=== PATIENT | male | born 1970 | race Caucasian/White ===

== ENCOUNTER 2017-07-01 16:35 | Emergency (ER) | payer BC ==
[2017-07-01 16:51] VITALS: BP 126/76
[2017-07-01] MEDS ORDERED: FAMOTIDINE 20 MG TABLET PO ONE (17:48)
[2017-07-01] MEDS ORDERED: PREDNISONE 20 MG TABLET PO ONE (17:48)
--- NOTE | 2017-07-01 17:57 | ER Document Report ---
ED Extremity Problem, Lower - General Chief Complaint: Swelling of Lower Extremity Stated Complaint: LEFT FOOT PAIN Time Seen by Provider: 07/01/17 17:30 Mode of Arrival: Ambulatory Information source: Patient Notes: 46-year-old male presents to ED for swelling to the left foot since Sunday. He states he has been itching and scratching the foot since Sunday he noticed that it started swelling 3-4 days ago. He states his been putting anti-itch cream on it and it is not getting any better he states he does scratch it frequently. He denies any injury there is no redness or warmth to the foot he walks with a steady even gait. He states he has not injured his foot. He states he does not remember anything biting his foot and he does not walk around barefooted. He states he does scratch it frequently and the fortune that I see or from him scratching so much. TRAVEL OUTSIDE OF THE [place] IN LAST 30 DAYS: No - HPI Patient complains to provider of: Swelling - Itching and pressure to foot Location: Foot Occurred: Other - Last Sunday Onset/Duration: Gradual, Persistent Quality of pain: Pressure - Itching Severity: Mild Pain Level: 1 Recent injury: No Associated symptoms: Other - Pressure when walking and itchy Exacerbated by: Walking Relieved by: Nothing Past Medical History - General Information source: Patient - Social History Smoking Status: Never Smoker Cigarette use (# per day): No Chew tobacco use (# tins/day): No Smoking Education Provided: No Frequency of alcohol use: Occasional Drug Abuse: None Occupation: [employer] at [employer] Lives with: Parents - States mom moved in with him for him to help care for her Family History: COPD, DM, Hypertension Patient has suicidal ideation: No Patient has homicidal ideation: No - Past Medical History Cardiac Medical History: Reports: None Pulmonary Medical History: Reports: None EENT Medical History: Reports: None Neurological Medical History: Reports: None Endocrine Medical History: Reports: None Renal/ Medical History: Reports: None Malignancy Medical History: Reports None GI Medical History: Reports: None Musculoskeltal Medical History: Reports Hx Musculoskeletal Trauma - Fifth finger Skin Medical History: Reports None Psychiatric Medical History: Reports: None Traumatic Medical History: Reports: Hx Fractures - Fifth finger Infectious Medical History: Reports: None Past Surgical History: Reports: Hx Appendectomy, Hx Inguinal Hernia - Left - Immunizations Immunizations up to date: Yes Review of Systems - Review of Systems Constitutional: No symptoms reported EENT: No symptoms reported Cardiovascular: No symptoms reported Respiratory: No symptoms reported Gastrointestinal: No symptoms reported Genitourinary: No symptoms reported Male Genitourinary: No symptoms reported Musculoskeletal: No symptoms reported Skin: Rash - Rash and swelling to left foot denies injury no redness no warmth present Hematologic/Lymphatic: No symptoms reported Neurological/Psychological: No symptoms reported -: Yes All other systems reviewed and negative Physical Exam - Vital signs Vitals: Temp Pulse Resp BP Pulse Ox 98.3 F 80 16 126/76 H 96 07/01/17 16:45 07/01/17 16:45 07/01/17 16:45 07/01/17 16:45 07/01/17 16:45 Interpretation: Normal - General General appearance: Appears well, Alert - HEENT Head: Normocephalic, Atraumatic Eyes: Normal Pupils: PERRL - Respiratory Respiratory status: No respiratory distress Chest status: Nontender Breath sounds: Normal Chest palpation: Normal - Cardiovascular Rhythm: Regular Heart sounds: Normal auscultation Murmur: No - Abdominal Inspection: Normal Distension: No distension Bowel sounds: Normal Tenderness: Nontender Organomegaly: No organomegaly - Back Back: Normal, Nontender - Extremities General upper extremity: Normal inspection, Nontender, Normal color, Normal ROM , Normal temperature General lower extremity: Normal color, Normal ROM, Normal temperature, Normal weight bearing. No: Stewart's sign Foot: No evidence of FB, Other - Swelling and rash to the top of the left foot since Sunday does not remember any injury does not remember anything biting him no redness no warmth states it feels like there is a little pressure due to swelling but no other pain. No: Tender, Abrasion, Deformity, Ecchymosis, Instability, Laceration, Metatarsal compress. pain, Nail injury, Navicular tenderness, Puncture wound, Tender 5th metatarsal - Neurological Neuro grossly intact: Yes Cognition: Normal Orientation: AAOx4 Rolla Coma Scale Eye Opening: Spontaneous Eitan Coma Scale Verbal: Oriented Eitan Coma Scale Motor: Obeys Commands Rolla Coma Scale Total: 15 Speech: Normal Motor strength normal: LUE, RUE, LLE, RLE Sensory: Normal - Psychological Associated symptoms: Normal affect, Normal mood - Skin Skin Temperature: Warm Skin Moisture: Dry Skin Color: Normal Skin irregularity: Rash - Left foot Irregularity with: Swelling - Left foot. negative: Tenderness, Warmth Course - Re-evaluation Re-evalutation: 07/01/17 18:02 Patient states he has been using steroid cream to his foot since Sunday with no relief patient was put on small prescription of steroids and Pepcid and instructed to use Benadryl when going to sleep and Zyrtec in the morning and to follow-up with the can maker concerning his itching and swelling to his left foot. Patient was given a list of the local doctors to find himself a primary doctor. - Vital Signs Vital signs: Temp Pulse Resp BP Pulse Ox 98.3 F 80 16 126/76 H 96 07/01/17 16:45 07/01/17 16:45 07/01/17 16:45 07/01/17 16:45 07/01/17 16:45 Discharge - Discharge Clinical Impression: rash to foot Condition: Stable Disposition: HOME, SELF-CARE Instructions: Family Physicians / Practices Additional Instructions: ACUTE ALLERGIC REACTION: Your symptoms are due to an allergic reaction. Allergy can cause hives, swelling of the hands, feet, and face, hoarseness, and difficulty swallowing or breathing. It may be due to exposure to medication, animal dander, foods, infection, or insect bites. Medication is a common cause, even when prior use of this same medication caused no problems. Acute treatment may include adrenalin and antihistamines. Usually, the specific allergic agent can't be identified unless repeated episodes occur. Home treatment includes the following: (1) Stop any suspicious medications. This will be discussed with you. (2) Oral antihistamines for the next four to five days. Example, diphenhydramine (Benadryl) every four hours. (3) You may also use cimetidine (Tagamet), ranitidine (Zantac), or famotidine ( Pepcid) every four hours if diphenhydramine is not controlling itching and hives. (4) Avoid aspirin until the hives completely disappear. (5) Avoid hot baths or showers until the hives are completely gone. Call the doctor if faintness, difficulty swallowing, tightness in the chest , or wheezing occurs. STEROID MEDICATION: You have been given a medicine of the cortisone/steroid class. This medication is used to control inflammation or allergy. It is usually only given for a short period of time, until the acute process subsides. There are usually no side effects from short-term use of cortisone-like medications. Some persons feel an increased sense of well-being and are not sleepy at bedtime. Long-term use of cortisone medications is best avoided, unless required for a severe condition. If your condition does not remit, or relapses after the course of corticosteroid medication, you should consult your physician. ACID-SUPPRESSING MEDICATION: You have a prescription for medicine which reduces the stomach's secretion of acid. Examples include Zantac, Tagament, and Pepcid. These drugs are often used to allow healing of ulcers or esophagitis. They may be needed to prevent recurrence of ulcers in some patients, or to prevent damage from acid reflux in the esophagus. Take all medication as prescribed, even after the pain is gone. Regular antacids may be added as needed if you have symptoms while taking this medicine. These medications sometimes are prescribed for allergic reactions because they have anti-histaminic effects and relieve the rash and itching of the reaction. There are usually no side effects from this medication. But, in rare cases and particularly in the elderly, serious problems can occur. Contact your doctor if there is fever, rash, hallucinations, confusion, or unusual bruising. Contact your doctor at once if you develop lightheadedness, black or bloody stool, or bloody vomitus. ANTIHISTAMINES: An antihistamine has been given and/or prescribed to control your symptoms. Antihistamines are used for many reasons, including itching, watering eyes, runny nose, allergic swelling, hives, and insect stings. Antihistamines may cause drowsiness, especially with the first dose. Do not operate machinery or drive while under the effects of the medication. Other common side effects include dry mouth and eyes. In older persons, antihistamines can occasionally cause urinary retention, constipation, and trouble focusing the eyes. Do not combine the medication with alcohol, or with any other medication without talking to your doctor. USE OF DIPHENHYDRAMINE: The use of diphenhydramine (Benadryl) has been recommended to control allergic symptoms. The 25 mg strength is available over- the-counter, as well as the elixir. This antihistamine is used for many symptoms. It's useful for itching, watering eyes and nose, allergic swelling, hives, and insect stings. The medication can be repeated four times daily. Age Elixir (12.5 mg/tsp) 25 mg pill 2-3 yr 1/2 tsp 4-8 yr 1 tsp 9-14 yr 2 tsp one tab adult 1-2 tabs Antihistamines may cause drowsiness, especially with the first dose. Do not operate machinery or drive while under the effects of the medication. Do not combine the medication with alcohol, or with any other medication without talking to your doctor. FOLLOW-UP CARE: If you have been referred to a physician for follow-up care, call the physician s office for an appointment as you were instructed or within the next two days. If you experience worsening or a significant change in your symptoms, notify the physician immediately or return to the Emergency Department at any time for re-evaluation. Prescriptions: Famotidine [Pepcid 20 mg Tablet] 20 mg PO BID #12 tablet Prednisone [Deltasone 10 mg Tablet] 10 mg PO ASDIR PRN #21 tablet PRN Reason: Forms: Elevated Blood Pressure, Return to Work Referrals: IDANIA MCCORD DPM [ACTIVE STAFF] - Follow up as needed
== END 2017-07-01 18:09 | disposition home or self-care (01) ==
LOC: ER 16:35
DX: R21 Rash and other nonspecific skin eruption (principal); L29.8 Other pruritus; M79.89 Other specified soft tissue disorders
CPT/HCPCS: 99283; J7512

== ENCOUNTER 2017-08-25 15:29 | Emergency (ER) | payer BC ==
[2017-08-25 15:33] VITALS: BP 128/68
--- NOTE | 2017-08-25 16:45 | RADIOLOGY REPORT (SQ) ---
EXAM DESCRIPTION: FOOT LEFT COMPLETE COMPLETED DATE/TIME: 08/25/2017 4:25 pm REASON FOR STUDY: foot swelling COMPARISON: None. NUMBER OF VIEWS: Three views. TECHNIQUE: AP, lateral and oblique radiographic images acquired of the left foot. LIMITATIONS: None. FINDINGS: MINERALIZATION: Normal. BONES: No acute fracture or dislocation. No worrisome bone lesions. JOINTS: No effusions. SOFT TISSUES: Diffuse swelling. No foreign body. OTHER: No other significant finding. IMPRESSION: Soft tissue injury. TECHNICAL DOCUMENTATION: JOB ID: [id number] [employer]- All Rights Reserved
--- NOTE | 2017-08-25 17:01 | ER Document Report ---
ED Extremity Problem, Lower - General Chief Complaint: Foot Pain Stated Complaint: LEFT FOOT PAIN Time Seen by Provider: 08/25/17 16:07 Mode of Arrival: Ambulatory Information source: Patient Notes: Patient is a 46-year-old male who presents to the ER today for 1 week of swelling and redness to the left foot. Patient states that he has been seen for this before but nothing was prescribed or done for it. He denies any history of cellulitis, he denies any injury. He denies history of gout. He denies pain to the foot, more just the swelling and a little redness. He states that it is occasionally itchy and he does have to scratch it. He denies seeing anything bite him. He denies swelling to the other foot or anywhere else. He denies history of diabetes, congestive heart failure or kidney failure. TRAVEL OUTSIDE OF THE [place] IN LAST 30 DAYS: No - Related Data Allergies/Adverse Reactions: No Known Allergies Allergy (Verified 08/25/17 15:29) Past Medical History - General Information source: Patient - Social History Smoking Status: Never Smoker Chew tobacco use (# tins/day): No Frequency of alcohol use: None Drug Abuse: None Family History: COPD, DM, Hypertension Patient has suicidal ideation: No Patient has homicidal ideation: No Renal/ Medical History: Denies: Hx Peritoneal Dialysis Musculoskeltal Medical History: Reports Hx Musculoskeletal Trauma - Fifth finger Traumatic Medical History: Reports: Hx Fractures - Fifth finger Past Surgical History: Reports: Hx Appendectomy, Hx Inguinal Hernia - Left - Immunizations Immunizations up to date: Yes Review of Systems - Review of Systems Constitutional: No symptoms reported EENT: No symptoms reported Cardiovascular: No symptoms reported Respiratory: No symptoms reported Gastrointestinal: No symptoms reported Genitourinary: No symptoms reported Male Genitourinary: No symptoms reported Musculoskeletal: No symptoms reported Skin: See HPI Hematologic/Lymphatic: No symptoms reported Neurological/Psychological: No symptoms reported Physical Exam - Vital signs Vitals: Temp Pulse Resp BP Pulse Ox 98.7 F 76 18 128/68 H 97 08/25/17 15:33 08/25/17 15:33 08/25/17 15:33 08/25/17 15:33 08/25/17 15:33 - Notes Notes: PHYSICAL EXAMINATION: GENERAL: Well-appearing and in no acute distress. HEAD: Atraumatic, normocephalic. EYES: Pupils equal round and reactive to light, extraocular movements intact, sclera anicteric, conjunctiva are normal. NECK: Normal range of motion, supple without lymphadenopathy LUNGS: CTAB and equal. No wheezes rales or rhonchi. HEART: Regular rate and rhythm without murmurs EXTREMITIES: Normal range of motion, no pitting edema. No cyanosis. NEUROLOGICAL: Cranial nerves grossly intact. Normal sensory/motor exams. PSYCH: Normal mood, normal affect. SKIN: Warm, Dry, normal turgor,mild edema and erythema to lateral/dorsal left foot, no tenderness to exam, excoriation present, no fluctuance or induration Course - Re-evaluation Re-evalutation: 08/25/17 18:49 x ray reveals soft tissue swelling, pt afebrile and erythema not impressive, may be just due to the excoriation, but I will place him on cephalexin to treat for possible cellulitis. unlikely gout without pain at all - Vital Signs Vital signs: Temp Pulse Resp BP Pulse Ox 98.7 F 76 18 128/68 H 97 08/25/17 15:33 08/25/17 15:33 08/25/17 15:33 08/25/17 15:33 08/25/17 15:33 Discharge - Discharge Clinical Impression: left foot swelling Condition: Stable Disposition: HOME, SELF-CARE Additional Instructions: Return immediately for any new or worsening symptoms. Follow up with primary care provider, call tomorrow to make followup appointment. Prescriptions: Cephalexin Monohydrate [Keflex 500 mg Capsule] 500 mg PO BID 10 Days #20 capsule Forms: Return to Work
== END 2017-08-25 17:32 | disposition home or self-care (01) ==
LOC: ER 15:29
DX: M79.89 Other specified soft tissue disorders (principal); L53.9 Erythematous condition, unspecified; L29.9 Pruritus, unspecified
CPT/HCPCS: 99283

== ENCOUNTER 2018-10-20 20:00 | Emergency (ER) | payer BC ==
[2018-10-20] MEDS ORDERED: IBUPROFEN 600 MG TABLET PO ONE (20:37)
[2018-10-20] MEDS ORDERED: LIDOCAINE 5% (700 MG) TRANSDERMAL ADH..PATCH TP ONE (20:37)
[2018-10-20] MEDS ORDERED: ACETAMINOPHEN 325 MG TABLET PO ONE (20:37)
--- NOTE | 2018-10-20 20:39 | ER Document Report ---
HPI - HPI Time Seen by Provider: 10/20/18 20:24 Pain Level: 4 Context: Patient is a 47-year-old male who presents the emergency department with a chief complaint of left lower back pain. His pain started 2 days ago and he states it had progressively gotten worse. He states that it is a sharp, aching pain. He took some Tylenol yesterday but was unsure of whether or not it had helped. He also tried [id number] pain medication today before work, but states it only helped a little bit. He took about a month off of doing exercises at home and recently started back on his exercise regimen. He has no past medical history denies smoking, drinking, or drug use. - CONSTITUTIONAL Constitutional: DENIES: Fever, Chills - EENT EENT: DENIES: Sore Throat - NEURO Neurology: DENIES: Headache - RESPIRATORY Respiratory: DENIES: Trouble Breathing - GASTROINTESTINAL Gastrointestinal: DENIES: Abdominal Pain - MUSCULOSKELETAL Musculoskeletal: REPORTS: Back Pain - Left low. DENIES: Extremity pain - DERM Skin Color: Normal Skin Problems: None Past Medical History - Social History Smoking Status: Never Smoker Chew tobacco use (# tins/day): No Frequency of alcohol use: None Drug Abuse: None Family History: COPD, DM, Hypertension Patient has suicidal ideation: No Patient has homicidal ideation: No Renal/ Medical History: Denies: Hx Peritoneal Dialysis Musculoskeletal Medical History: Reports Hx Musculoskeletal Trauma - Fifth finger Traumatic Medical History: Reports: Hx Fractures - Fifth finger Past Surgical History: Reports: Hx Appendectomy, Hx Inguinal Hernia - Left - Immunizations Immunizations up to date: Yes Vertical Provider Document - CONSTITUTIONAL Agree With Documented VS: Yes Exam Limitations: No Limitations General Appearance: No Apparent Distress - INFECTION CONTROL TRAVEL OUTSIDE OF THE [place] IN LAST 30 DAYS: No - HEENT HEENT: Atraumatic - NECK Neck: Normal Inspection - RESPIRATORY Respiratory: Breath Sounds Normal, No Respiratory Distress - CARDIOVASCULAR Cardiovascular: Regular Rhythm Pulses: Normal: Radial - GI/ABDOMEN Gastrointestinal: Abdomen Soft - BACK Back: Normal Inspection - MUSCULOSKELETAL/EXTREMETIES Musculoskeletal/Extremeties: FROM, Tender - Left lower back - NEURO Level of Consciousness: Awake, Alert, Appropriate Motor/Sensory: No Motor Deficit, No Sensory Deficit Deep Tendon Reflexes: 2+ - DERM Integumentary: Warm, Dry Course - Re-evaluation Re-evalutation: Differential diagnosis for back pain includes muscle spasm, muscle strain, slipped disc cauda equina syndrome, vertebral fracture, vertebral tumor, epidura l abscess, pyelonephritis, or AAA. Based on history and exam, the most likely etiology of the patient's back pain is due to muscle tension. Emergent MRI is not indicated at this time because the patient does not have new weakness, or cauda equina syndrome. Patient does not have bladder or bowel dysfunction. Patient does not have history of IV drug use, therefore, I do not suspect an epidural abscess. Patient does not have recent weight loss or night sweats, and does not have a known history of cancer. 10/20/18 21:14 The patient states that he only has a little bit of improvement with Motrin, Tylenol, and lidocaine patch. He will be given Robaxin and sent home with the prescription. Verbal discharge instructions were given to the patient. They verbalized understanding. They are stable for discharge. - Vital Signs Vital signs: Temp Pulse Resp BP Pulse Ox 98.2 F 75 16 135/78 H 97 10/20/18 20:12 10/20/18 20:12 10/20/18 20:12 10/20/18 20:12 10/20/18 20:12 Discharge - Discharge Clinical Impression: Left low back pain Qualifiers: Chronicity: acute Sciatica presence: without sciatica Qualified Code(s): M54.5 - Low back pain Condition: Stable Disposition: HOME, SELF-CARE Instructions: Ice Packs ([facility]), Low Back Pain ([facility]), Warm Packs ([facility]) Additional Instructions: You were seen today in the emergency department for low back pain. Your back pain is most likely due to muscle strain. You may take Motrin and Tylenol as needed for your pain. You have also been given Robaxin, a muscle relaxer. You may take 1 tablet every evening as needed for muscle aches. Please establish and follow-up with a primary care provider in regards to this visit. You may benefit from physical therapy. If you have loss of bladder and bowel function, develop numbness and tingling, cannot walk, or have any symptoms that are worrisome to you, please return to the emergency department. Prescriptions: Methocarbamol [Robaxin 500 mg Tablet] 500 mg PO QHS #10 tablet
[2018-10-20] MEDS ORDERED: METHOCARBAMOL 500 MG TABLET PO ONE (21:14)
[2018-10-20 21:41] VITALS: BP 132/81
== END 2018-10-20 21:36 | disposition home or self-care (01) ==
LOC: ER 20:00
DX: M54.5 Low back pain (principal)
CPT/HCPCS: 99283